=== PATIENT | female | born 1975 | race Caucasian/White ===

== ENCOUNTER 2018-11-17 03:04 | Observation (INO) ==
[2018-11-17] MEDS ORDERED: IOPAMIDOL 100 ML BOTTLE IV ONE (03:05)
[2018-11-17 04:00] LABS: Basophils # (Auto) 0 K/mcL (0.0-0.3); Basophils % (Auto) 0.3 % (0.0-2.0); Eosinophils # (Auto) 0.1 K/mcL (0.0-0.7); Eosinophils % (Auto) 0.7 % (0.0-7.0); Granulocytes % (Auto) 73.9 % (38.0-78.0); Lymphocytes # (Auto) 1.8 K/mcL (1.5-4.8); Lymphocytes % (Auto) 17.1 % (15.5-49.0); Mean Cell Volume 90.7 fL (80.0-100.0); Mean Corpuscular HGB Conc 33.5 g/dL (31.0-36.0); Monocytes # (Auto) 0.9 K/mcL (0.1-0.9); Platelet Count 235 K/mcL (140-440); RBC 4.81 M/mcL (4.00-5.20)
[2018-11-17] MEDS ORDERED: LACTATED RINGERS 1,000 ML IV SCH (04:00)
[2018-11-17 04:16] LABS: ALT/SGPT 19 U/l (0-40); Albumin/Globulin Ratio 1.2 (1.0-2.3); Alkaline Phosphatase 88 U/L (39-117); Blood Urea Nitrogen 9 mg/dl (6-20)
[2018-11-17 04:39] LABS: Appearance,Urine HAZY; Bilirubin,Urine NEG (NEG); Color,Urine YELLOW; Glucose,Urine (UA) NEGATIVE (NEG); Leukocyte Esterase,Urine NEG /uL (NEG); Protein,Urine NEG (NEG); Specific Gravity,Urine 1.035 (1.000-1.035); Urine Blood NEG mg/dL (<0.03)
[2018-11-17 04:48] LABS: Amphetamine Screen,Urine NONE DETECTED (NONDETECTED); Benzodiazepines Screen,Urine NONE DETECTED (NONDETECTED); Cocaine Screen,Urine NONE DETECTED (NONDETECTED); Opiate Screen,Urine NONE DETECTED (NONDETECTED); Oxycodone, Urine Screen NONE DETECTED (NONDETECTED)
[2018-11-17] MEDS ORDERED: ASPIRIN 81 MG TAB.CHEW CHEWED ONE (05:01)
[2018-11-17] MEDS ORDERED: INSULIN GLARGINE, HUMAN 1 UNIT/0.01 ML SQ ONE (05:15)
[2018-11-17] MEDS ORDERED: DEXTROSE 5% IN WATER 1,000 ML IV SCH (05:45)
--- NOTE | 2018-11-17 07:09 | Emergency Department Note ---
Weakness HPI - General Chief complaint: Weakness Stated complaint: weakness Time Seen by Provider: 11/17/18 03:15 Source: EMS Mode of arrival: EMS - History of Present Illness HPI Narrative: This patient normally gets up about 1:30 in the morning to go work out and using us to bed early at about 530. Last evening she was seen by her son 730 last time being normal. When her little alarm went off at 130 she rolled and fell out of bed and was too weak to get up she is unable to use her hands to text very well she could yell for her son who finally woke up and came and found her. The patient does not recall specifically if it was more right-sided or left- sided weakness but she could not use her right hand to text. She also could not get up. By the time she arrived in the emergency room her motor function had returned but she had slurred speech. - Related Data Home Medications Medication Instructions Recorded Confirmed Insulin Glargine,Hum.rec.anlog 40 units SQ DAILY 11/05/17 10/14/18 [Basaglar Kwikpen U-100] Insulin Lispro [HumaLOG] 35 unit SQ DAILY 11/05/17 10/14/18 Levothyroxine [Synthroid] 137 mcg PO DAILY 11/05/17 10/14/18 Allergies Allergy/AdvReac Type Severity Reaction Status Date / Time morphine Allergy Severe Anaphylaxis Verified 11/17/18 03:15 Penicillins Allergy Severe Difficulty Verified 11/17/18 03:15 Breathing Review of Systems All systems ED: reviewed and negative except as stated. Past Medical History - Past Medical History Medical history: Reports: DM (Type 1 since 2000), hypothyroidism Surgical history ED: Reports: other (lumbosacral disc him a ,) - Social History smoking status: Current every day smoker Alcohol use: Reports: Occasionally Drug use: Reports: none Physical Exam Limitations: no limitations General appearance: alert Head: atraumatic Eye: Present: normal appearance ENT: normal exam, normal oropharynx Neck: Present: normal inspection Chest: Present: normal inspection Cardiovascular: Present: regular rate, normal rhythm, normal heart sounds Abdominal: Present: soft. Absent: distention, tenderness Neurological: Present: alert Speech: Present: dysarthria. Absent: fluid speech Cranial nerves: facial palsy (VII): Normal Motor strength - LUE: 5/5 Motor strength - RUE: 5/5 Motor strength - LLE: 5/5 Motor strength - RLE: 5/5 Psychiatric: Present: normal affect Skin: Present: warm, dry Course Vital Signs Temperature 97.8 F 11/17/18 03:08 Pulse Rate 99 H 11/17/18 03:08 Respiratory Rate 15 11/17/18 03:08 Blood Pressure 124/83 11/17/18 03:08 Pulse Oximetry (%) 100 11/17/18 03:08 Temperature 97.8 F 11/17/18 03:08 Pulse Rate 94 H 11/17/18 06:33 Respiratory Rate 15 11/17/18 03:19 Blood Pressure 135/81 11/17/18 06:33 Pulse Oximetry (%) 98 11/17/18 06:33 Weakness - MDM Narrative Medical decision making narrative: CT of head and CTA of head and neck were negative. Within about 5 hours the patient resolved all of her symptoms and felt back to her normal baseline self. She was able to ambulate. I discussed the case with . thought he thinks we should admit her observation and do an MRI and an echo. - Lab Data Lab results reviewed: Yes I reviewed the patient's lab results. Result diagrams: 11/17/18 03:10 11/17/18 03:10 Lab Results 11/17/18 11/17/18 11/17/18 Range/Units 03:10 03:10 03:10 WBC 10.7 (4.5-11.0) K/mcL RBC 4.81 (4.00-5.20) M/mcL Hgb 14.6 (12.0-15.0) g/dL Hct 43.6 (36.0-48.0) % POC Hct 44.0 (36.0-48.0) % MCV 90.7 (80.0-100.0) fL MCH 30.4 (26.0-34.0) pg MCHC 33.5 (31.0-36.0) g/dL RDW 14.0 (11.5-14.5) % Plt Count 235 (140-440) K/mcL MPV 10.5 H (7.4-10.4) fL Gran % 73.9 (38.0-78.0) % Lymph % (Auto) 17.1 (15.5-49.0) % [place] % (Auto) 8.0 (1.0-12.0) % Eos % (Auto) 0.7 (0.0-7.0) % Baso % (Auto) 0.3 (0.0-2.0) % Gran # 7.9 (1.8-8.0) K/mcL Lymph # (Auto) 1.8 (1.5-4.8) K/mcL [place] # (Auto) 0.9 (0.1-0.9) K/mcL Eos # (Auto) 0.1 (0.0-0.7) K/mcL Baso # (Auto) 0 (0.0-0.3) K/mcL POC PT (11.9-14.5) sec POC INR (0.9-1.2) POC Sodium 141 (133-145) mmol/L Sodium (133-145) mmol/L POC Potassium 3.9 (3.3-5.1) mmol/L Potassium (3.3-5.1) mmol/L POC Chloride 102 (96-108) mmol/L Chloride (96-108) mmol/L Carbon Dioxide (22-30) mmol/L POC Total CO2 26 (22-30) mmol/L Anion Gap (8-16) POC BUN 9 (6-20) mg/dl BUN (6-20) mg/dl Creatinine (0.6-1.1) mg/dl POC Creatinine 0.7 (0.6-1.1) mg/dl GFR Calculation Glucose (70-105) mg/dL POC Glucose 97 (70-105) mg/dL Calcium (8.6-10.4) mg/dl POC WB Ioniz Calcium 1.14 L (1.16-1.32) mmol/L Total Bilirubin (0.0-1.0) mg/dL AST (0-37) U/l ALT (0-40) U/l Alkaline Phosphatase (39-117) U/L Total Protein (5.9-8.4) gm/dL Albumin (3.2-5.2) gm/dL Globulin (2.2-3.7) gm/dL Albumin/Globulin Ratio (1.0-2.3) Beta-Hydroxybutyrate (< 0.27) mmol/L Urine Color Urine Appearance Urine pH (5.0-9.0) Ur Specific [place] (1.000-1.035) Urine Protein (NEG) mg/dL Urine Glucose (UA) (NEG) mg/dL Urine Ketones (NEG) mg/dL Urine Occult Blood (<0.03) mg/dL Urine Nitrate (NEG) Urine Bilirubin (NEG) mg/dL Urine Urobilinogen (NEG) mg/dL Ur Leukocyte Esterase (NEG) /uL Urine Opiates Screen (NONDETECTED) Ur Oxycodone Screen (NONDETECTED) Urine Methadone Screen (NONDETECTED) Ur Barbiturates Screen (NONDETECTED) Ur Phencyclidine Scrn (NONDETECTED) Ur Amphetamines Screen (NONDETECTED) U Benzodiazepines Scrn (NONDETECTED) Urine Cocaine Screen (NONDETECTED) U Marijuana (THC) Screen (NONDETECTED) Ethyl Alcohol < 0.010 (<0.010) gm/dl 11/17/18 11/17/18 11/17/18 Range/Units 03:10 03:10 03:49 WBC (4.5-11.0) K/mcL RBC (4.00-5.20) M/mcL Hgb (12.0-15.0) g/dL Hct (36.0-48.0) % POC Hct (36.0-48.0) % MCV (80.0-100.0) fL MCH (26.0-34.0) pg MCHC (31.0-36.0) g/dL RDW (11.5-14.5) % Plt Count (140-440) K/mcL MPV (7.4-10.4) fL Gran % (38.0-78.0) % Lymph % (Auto) (15.5-49.0) % [place] % (Auto) (1.0-12.0) % Eos % (Auto) (0.0-7.0) % Baso % (Auto) (0.0-2.0) % Gran # (1.8-8.0) K/mcL Lymph # (Auto) (1.5-4.8) K/mcL [place] # (Auto) (0.1-0.9) K/mcL Eos # (Auto) (0.0-0.7) K/mcL Baso # (Auto) (0.0-0.3) K/mcL POC PT 12.0 (11.9-14.5) sec POC INR 1.0 (0.9-1.2) POC Sodium (133-145) mmol/L Sodium 139 (133-145) mmol/L POC Potassium (3.3-5.1) mmol/L Potassium 4.1 (3.3-5.1) mmol/L POC Chloride (96-108) mmol/L Chloride 100 (96-108) mmol/L Carbon Dioxide 25 (22-30) mmol/L POC Total CO2 (22-30) mmol/L Anion Gap 14.0 (8-16) POC BUN (6-20) mg/dl BUN 9 (6-20) mg/dl Creatinine 0.7 (0.6-1.1) mg/dl POC Creatinine (0.6-1.1) mg/dl GFR Calculation 108 Glucose 95 (70-105) mg/dL POC Glucose (70-105) mg/dL Calcium 9.2 (8.6-10.4) mg/dl POC WB Ioniz Calcium (1.16-1.32) mmol/L Total Bilirubin 0.4 (0.0-1.0) mg/dL AST 30 (0-37) U/l ALT 19 (0-40) U/l Alkaline Phosphatase 88 (39-117) U/L Total Protein 7.3 (5.9-8.4) gm/dL Albumin 4.0 (3.2-5.2) gm/dL Globulin 3.3 (2.2-3.7) gm/dL Albumin/Globulin Ratio 1.2 (1.0-2.3) Beta-Hydroxybutyrate 1.09 H (< 0.27) mmol/L Urine Color Urine Appearance Urine pH (5.0-9.0) Ur Specific [place] (1.000-1.035) Urine Protein (NEG) mg/dL Urine Glucose (UA) (NEG) mg/dL Urine Ketones (NEG) mg/dL Urine Occult Blood (<0.03) mg/dL Urine Nitrate (NEG) Urine Bilirubin (NEG) mg/dL Urine Urobilinogen (NEG) mg/dL Ur Leukocyte Esterase (NEG) /uL Urine Opiates Screen (NONDETECTED) Ur Oxycodone Screen (NONDETECTED) Urine Methadone Screen (NONDETECTED) Ur Barbiturates Screen (NONDETECTED) Ur Phencyclidine Scrn (NONDETECTED) Ur Amphetamines Screen (NONDETECTED) U Benzodiazepines Scrn (NONDETECTED) Urine Cocaine Screen (NONDETECTED) U Marijuana (THC) Screen (NONDETECTED) Ethyl Alcohol (<0.010) gm/dl 11/17/18 11/17/18 Range/Units 04:02 04:03 WBC (4.5-11.0) K/mcL RBC (4.00-5.20) M/mcL Hgb (12.0-15.0) g/dL Hct (36.0-48.0) % POC Hct (36.0-48.0) % MCV (80.0-100.0) fL MCH (26.0-34.0) pg MCHC (31.0-36.0) g/dL RDW (11.5-14.5) % Plt Count (140-440) K/mcL MPV (7.4-10.4) fL Gran % (38.0-78.0) % Lymph % (Auto) (15.5-49.0) % [place] % (Auto) (1.0-12.0) % Eos % (Auto) (0.0-7.0) % Baso % (Auto) (0.0-2.0) % Gran # (1.8-8.0) K/mcL Lymph # (Auto) (1.5-4.8) K/mcL [place] # (Auto) (0.1-0.9) K/mcL Eos # (Auto) (0.0-0.7) K/mcL Baso # (Auto) (0.0-0.3) K/mcL POC PT (11.9-14.5) sec POC INR (0.9-1.2) POC Sodium (133-145) mmol/L Sodium (133-145) mmol/L POC Potassium (3.3-5.1) mmol/L Potassium (3.3-5.1) mmol/L POC Chloride (96-108) mmol/L Chloride (96-108) mmol/L Carbon Dioxide (22-30) mmol/L POC Total CO2 (22-30) mmol/L Anion Gap (8-16) POC BUN (6-20) mg/dl BUN (6-20) mg/dl Creatinine (0.6-1.1) mg/dl POC Creatinine (0.6-1.1) mg/dl GFR Calculation Glucose (70-105) mg/dL POC Glucose (70-105) mg/dL Calcium (8.6-10.4) mg/dl POC WB Ioniz Calcium (1.16-1.32) mmol/L Total Bilirubin (0.0-1.0) mg/dL AST (0-37) U/l ALT (0-40) U/l Alkaline Phosphatase (39-117) U/L Total Protein (5.9-8.4) gm/dL Albumin (3.2-5.2) gm/dL Globulin (2.2-3.7) gm/dL Albumin/Globulin Ratio (1.0-2.3) Beta-Hydroxybutyrate (< 0.27) mmol/L Urine Color Yellow Urine Appearance Hazy Urine pH 5.0 (5.0-9.0) Ur Specific [place] 1.035 (1.000-1.035) Urine Protein Neg (NEG) mg/dL Urine Glucose (UA) Negative (NEG) mg/dL Urine Ketones 20 A (NEG) mg/dL Urine Occult Blood Neg (<0.03) mg/dL Urine Nitrate Neg (NEG) Urine Bilirubin Neg (NEG) mg/dL Urine Urobilinogen 4.0 A (NEG) mg/dL Ur Leukocyte Esterase Neg (NEG) /uL Urine Opiates Screen None detected (NONDETECTED) Ur Oxycodone Screen None detected (NONDETECTED) Urine Methadone Screen None detected (NONDETECTED) Ur Barbiturates Screen None detected (NONDETECTED) Ur Phencyclidine Scrn None detected (NONDETECTED) Ur Amphetamines Screen None detected (NONDETECTED) U Benzodiazepines Scrn None detected (NONDETECTED) Urine Cocaine Screen None detected (NONDETECTED) U Marijuana (THC) Screen None detected (NONDETECTED) Ethyl Alcohol (<0.010) gm/dl - Radiology Data Radiology results reviewed: Yes I reviewed the patient's radiology results. Disposition Pt seen by EMPLOYEE SERVICE OFFICER/PA only: No Clinical Impression: CVA (cerebral vascular accident) Disposition: Xfer As Outpt/Obs ([facility]) Condition: Good Referrals: Arlette Ferguson ARNP [Primary Care Provider] - Time of Disposition: 07:12
[2018-11-17] MEDS ORDERED: INSULIN LISPRO 1 UNIT/0.01 ML UNIT SQ ONE (07:20)
--- NOTE | 2018-11-17 08:12 | Internal Med History&Physical ---
Medical - H&P: HPI Patient information: Note initiated : 11/17/18 at 8:09 am Service Date, if different from initiated Date: [] Patient: Elie Guerra a 43 y/o F admitted on for Weakness. Chief Complaint: [] History of present illness: Ms. Guerra is a 43 year old F with history of type 1 diabetes, hypothyroidism, comes to the emergency room for evaluation of weakness. The patient notes that she usually wakes up around 130 to 2 AM goes to the gym and then studies. The patient this morning woke up and tried to shut the alarm off and just rolled over the bed. She notes she was unable to move had significant weakness in all 4 extremities and was not able to speak to yell for help. Her son lives in the same house. The patient is not sure how long she was down but thinks at least an hour and her son found her and then called EMS. Patient had cramping in bilateral lower extremities and she feels that they are sore but they were definitely weak she was not able to get up she was not able to use a phone to call for help. When EMS evaluated her fingerstick was 55. She was brought to the emergency room for further evaluation her symptoms were improving by the time she was here I believe her sugar was 96. I am not sure if EMS gave her some glucose. The patient still had slurring of speech in the emergency room here no facial deviation and the rest of the neuro exam had improved. On talking to the patient she notes that she had hypoglycemic episode the day before to however usually her symptoms associated with hypoglycemia is flushing and sweating she has not had weakness or lack of ability to speak of the symptoms in the past. The patient in the emergency room on presentation was hemodynamically stable afebrile labs unremarkable, beta hydroxybutyrate mildly elevated, the patient had a CT head which was reported as negative CT angios neck and head is negative [as per ED report official report is pending] EKG is sinus rhythm Given that the patient is an active smoker, she has diabetes and symptoms that are atypical at least for her for hypoglycemia and concerning for TIA she is being admitted to the hospital for further evaluation Review of systems: CONSTITUTIONAL: No weight loss, fever, chills, weakness or fatigue. HEENT: Eyes: No visual loss, blurred vision, double vision or yellow sclerae. Ears, Nose, Throat: No hearing loss, sneezing, congestion, runny nose or sore throat. SKIN: No rash or itching. CARDIOVASCULAR: No chest pain, chest pressure or chest discomfort. No palpitations or edema. RESPIRATORY: No shortness of breath, cough or sputum. GASTROINTESTINAL: No nausea, vomiting or diarrhea or constipation. No abdominal pain or blood in stools No Deya. GENITOURINARY: Denies Burning on urination. Blood in urine, or foul smelling urine NEUROLOGICAL: no headache, double vision. generalized weakness present. a-hasia present MUSCULOSKELETAL: lowe extremity cramps /musle soreness present , back pain, joint pain or stiffness. HEMATOLOGIC: No bleeding or bruising. No enlarged nodes PSYCHIATRIC: No depression or anxiety. ENDOCRINOLOGIC: No reports of sweating, cold or heat intolerance. No polyuria or polydipsia. ALLERGIES: No hives, eczema or rhinitis. Skin: No rash, no jaundice, cyanosis or pallor. Medical - H&P: PMH Medical history: DM Hypothyroids Pertinent family history: mother - copd father -suicide sister - hypothyroid Social history: lives with son presently undergoing a divorce smoker Medical - H&P: Meds Home Medications Medication Instructions Recorded Confirmed Type Insulin Glargine,Hum.rec.anlog 40 units SQ DAILY 11/05/17 10/14/18 History [Basaglar Kwikpen U-100] Insulin Lispro [HumaLOG] 35 unit SQ DAILY 11/05/17 10/14/18 History Levothyroxine [Synthroid] 137 mcg PO DAILY 11/05/17 10/14/18 History Allergies Allergy/AdvReac Type Severity Reaction Status Date / Time morphine Allergy Severe Anaphylaxis Verified 11/17/18 03:15 Penicillins Allergy Severe Difficulty Verified 11/17/18 03:15 Breathing Medical - H&P: Exam - Constitutional Vitals: Temp Pulse Resp BP Pulse Ox 97.8 F 94 H 15 111/68 98 11/17/18 03:08 11/17/18 06:33 11/17/18 03:19 11/17/18 07:31 11/17/18 06:33 Exam: GENERAL: The patient is a well-developed, well-nourished in no apparent distress. Is alert and oriented x3. VITAL SIGNS: Reviewed and as noted elsewhere. HEENT: Head is normocephalic and atraumatic. Extraocular muscles are intact. Pupils are equal, round, and reactive to light. Nares appeared normal. Mouth appears any without lesions. Mucous membranes are moist. NECK: Normal to inspection, Supple, No lymphadenopathy or thyromegaly. LUNGS: Air entry equal on both sides, no wheezing, crackles or rhonchi noted. No accessory muscles of respiration HEART: Regular rate and rhythm normal, S1 and S2 heard, no Gallop, S3 or Rub Noted, No Gross murmur heard. ABDOMEN: Soft, nontender, and nondistended. Positive bowel sounds. No hepatosplenomegaly was noted. EXTREMITIES: No cyanosis, clubbing, rash, lesions or edema. NEUROLOGIC: Cranial nerves II through XII are grossly intact. The patient has full strength in upper and lower extremities bilaterally. Her sensation is grossly normal and coordination is completely normal. PSYCHIATRIC: Normal affect, Normal Mood. Appropriate Behavior. SKIN: No ulceration or wounds noted, No jaundice, No rash noted. Medical - H&P: Reslt - Labs CBC & Chem 7: 11/17/18 03:10 11/17/18 03:10 Labs: Short CBC 11/17/18 Range/Units 03:10 WBC 10.7 (4.5-11.0) K/mcL Hgb 14.6 (12.0-15.0) g/dL Hct 43.6 (36.0-48.0) % Plt Count 235 (140-440) K/mcL BMP 11/17/18 03:10 Sodium 139 Potassium 4.1 Chloride 100 Carbon Dioxide 25 BUN 9 Creatinine 0.7 Glucose 95 Calcium 9.2 Liver Function 11/17/18 Range/Units 03:10 Total Bilirubin 0.4 (0.0-1.0) mg/dL AST 30 (0-37) U/l ALT 19 (0-40) U/l Alkaline Phosphatase 88 (39-117) U/L Albumin 4.0 (3.2-5.2) gm/dL Urine 11/17/18 Range/Units 04:03 Urine Color Yellow Urine Appearance Hazy Urine pH 5.0 (5.0-9.0) Ur Specific [place] 1.035 (1.000-1.035) Urine Protein Neg (NEG) mg/dL Urine Glucose (UA) Negative (NEG) mg/dL Medical - H&P: A/P - Narrative A/P Narrative: A/P Weakness TIA DM Tobacco abuse Hypoglycemia Plan Observe on telemetry for now. Patient has an ABCD score of 2 Although symptoms are most likely related to hypoglycemia the patient notes that this is not typical hypoglycemic symptoms for her. She has been given aspirin. We will get echocardiogram, stroke MRI hopefully will be able to just get a dwi image to evaluate any possible CVA. Monitor on telemetry for 24 hours. Check A1c check TSH check lipid panel also check a urine . Start the patient on statin and aspirin monitor glucose, d/c d5 w, ssin insulin, resume oral diet. edwards placed in ER to be discontinued If remains stable anticipate discharge in 24 hours
[2018-11-17] MEDS ORDERED: DEXTROSE 31 GM ORAL.SUSP PO PRN (08:18)
[2018-11-17] MEDS ORDERED: NALOXONE HCL 0.4 MG/ML VIAL IV PRN (08:18)
[2018-11-17] MEDS ORDERED: DEXTROSE 50% 50 ML VIAL IV PRN (08:18)
[2018-11-17] MEDS ORDERED: ACETAMINOPHEN 325 MG TABLET PO PRN (08:18)
--- NOTE | 2018-11-17 08:58 | Cat Scan Report ---
CLINICAL INFORMATION: Code stroke as acute dysarthria COMPARISON: None. TECHNIQUE: 2.5 mm helical slices were obtained in the skull base to vertex. Following reconstruction, axial reformatted images were reviewed at bone and parenchymal windows. The exam was performed using radiation dose optimization techniques including, but not limited to, automated exposure control, adjustment of the mA and/or kV according to patient size and use of iterative reconstruction technique. FINDINGS: The ventricles, sulci, fissures, and cisterns are normal in size and configuration. No extra-axial fluid collections are identified. The cerebrum, brainstem and cerebellum are unremarkable. There is no evidence of hemorrhage, mass effect, or edema. 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 IMPRESSION: No intracerebral abnormality Interpreted and Authenticated by: Parth Carlton 11/17/18
[2018-11-17] MEDS: INSULIN LISPRO 1 UNIT/0.01 ML UNIT SQ SCH ×5 (09:07→21:07)
[2018-11-17] MEDS: ASPIRIN 81 MG TAB.CHEW PO SCH (09:08)
[2018-11-17] MEDS: HEPARIN 5,000 UNIT/ML VIAL SQ SCH ×2 (09:08→19:47)
--- NOTE | 2018-11-17 09:23 | Cat Scan Report ---
CLINICAL INFORMATION: Slurred speech COMPARISON: None. TECHNIQUE: 80 cc of Isovue-300 were injected intravenously , and using SmartPrep to maximize cerebral arterial opacification, 0.625 mm helical slices were obtained from the skull base through the cerebral vertex. Following reconstruction , sagittal, coronal and axial reformatted images were processed and reviewed at multiple windows and levels. 3D volume rendered and MIP images were acquired at a independent workstation. The exam was performed using radiation dose optimization techniques including, but not limited to, automated exposure control, adjustment of the mA and/or kV according to patient size and use of iterative reconstruction technique. FINDINGS: The intracranial vertebral, internal carotid, both anterior, middle and posterior cerebral basilar and vertebral arteries are well opacified and normal in contour and caliber without occlusion stenosis or other pathology. The cervical deep cerebral veins deep venous sinuses are patent. IMPRESSION: Normal Interpreted and Authenticated by: Parth Carlton 11/17/18
--- NOTE | 2018-11-17 09:31 | Cat Scan Report ---
CLINICAL INFORMATION: Slurred speech code stroke COMPARISON: None. TECHNIQUE: 80 cc of Isovue-300 were injected intravenously, and using SmartPrep to maximize arterial opacification, 0.625 mm helical slices were obtained from the thoracic aortic arch through the minto of [place]. Following reconstruction, 1.25 mm sagittal, coronal and axial reformatted images were processed and reviewed at standard and bone algorithm/window. 3-D volume rendered, CPR and MIP images were processed using a [employer] work station.The exam was performed using radiation dose optimization techniques including, but not limited to, automated exposure control, adjustment of the mA and/or kV according to patient size and use of iterative reconstruction technique. FINDINGS: The thoracic aortic arch, brachiocephalic, both subclavian, vertebral, both common, internal and external carotid arteries are entirely unremarkable widely patent. Aortic branching is conventional. No soft tissue abnormalities. IMPRESSION: Normal Interpreted and Authenticated by: Parth Carlton 11/17/18
[2018-11-17] MEDS: 0.9 % SODIUM CHLORIDE 10 ML SYRINGE IV SCH ×2 (14:20→21:06)
[2018-11-17] MEDS: LACTATED RINGERS 1,000 ML IV SCH ×2 (14:20→21:30)
--- NOTE | 2018-11-17 15:53 | Magnetic Resonance Report ---
CLINICAL INFORMATION: Slurred speech and weakness. History of diabetes COMPARISON: None. TECHNIQUE:Sagittal T1 FLAIR, axial T1 FLAIR, T2 FLAIR propeller, T2 propeller, gradient, diffusion, ADC and coronal T2 weighted images were acquired. FINDINGS: The ventricles, sulci, fissures and cisterns are normal in size and configuration - no extra-axial fluid collections or masses are appreciated. There are scattered chronic ischemic foci in the subcortical and deep cerebral white matter, predominantly in the frontal regions. These are approximately 15 in number and range up to 5 mm. There are no regions of restricted diffusion to suggest acute infarct.. No intracerebral hemorrhage, mass effect, edema or other acute finding. A signal void in the intracerebral arteries, extra-axial cranial nerves, pituitary and orbits are all normal. IMPRESSION: Scattered chronic ischemic foci in the subcortical and deep white matter, predominantly the frontal lobes. With history of diabetes, this may due to small vessel arteriosclerosis. Interpreted and Authenticated by: Parth Carlton 11/17/18
[2018-11-17] MEDS ORDERED: INSULIN GLARGINE, HUMAN 1 UNIT/0.01 ML SQ SCH ×3 (19:00→21:00)
[2018-11-17] MEDS ORDERED: ATORVASTATIN 20 MG TABLET PO SCH (21:00)
[2018-11-18] MEDS: 0.9 % SODIUM CHLORIDE 10 ML SYRINGE IV SCH (06:54)
[2018-11-18 07:32] LABS: ALT/SGPT 21 U/l (0-40); Albumin 3.6 gm/dL (3.2-5.2); Albumin/Globulin Ratio 1.2 (1.0-2.3); Alkaline Phosphatase 78 U/L (39-117); Bilirubin,Direct < 0.2 mg/dL (0.0-0.3); Blood Urea Nitrogen 7 mg/dl (6-20); Gamma Glutamyl Transpeptidase 26 U/L (5-36); Uric Acid 3.9 mg/dL (2.5-8.0)
[2018-11-18] MEDS: HEPARIN 5,000 UNIT/ML VIAL SQ SCH (08:18)
[2018-11-18] MEDS: INSULIN LISPRO 1 UNIT/0.01 ML UNIT SQ SCH (08:19)
[2018-11-18] MEDS: ASPIRIN 81 MG TAB.CHEW PO SCH (08:19)
--- NOTE | 2018-11-18 09:47 | Discharge Summary ---
Medical - DS: Prov Patient information: Note initiated : 11/18/18 at 9:43 am Service Date, if different from initiated Date: [] Patient: Elie Guerra 43 y/o F admitted on 11/17/18 for Weakness. Chief Complaint: [] Date of admission: 11/17/18 08:10 Discharge date: 11/18/18 Primary care physician: Arlette Ferguson Discharging clinician: Francesca Griffin Medical - DS: Meds - Discharge Medications Prescriptions: Insulin Glargine,Hum.rec.anlog [Lantus Solostar] 20 unit SQ QHS 1 Days insuln.pen Aspirin 81 mg PO DAILY #100 tab Atorvastatin [Lipitor] 40 mg PO HS #90 tablet Ergocalciferol (Vitamin D2) [Vitamin D2] 2,000 unit PO DAILY #100 tablet Active and Home Medications: Home Medications Levothyroxine [Synthroid] 137 mcg PO DAILY 11/05/17 [History Confirmed 11/17/18 Last Taken 11/16/18] Insulin Glargine,Hum.rec.anlog [Lantus Solostar] 25 unit SQ BID 11/17/18 [History Confirmed 11/17/18 Last Taken Unknown] Insulin Lispro [HumaLOG] 1 unit SQ ACHS 11/17/18 [History Confirmed 11/17/18 Last Taken Unknown] Medical - DS: Hosp Hospital course: Ms. Guerra is a 43 year old F with history of type 1 diabetes, hypothyroidism, comes to the emergency room for evaluation of weakness. The patient notes that she usually wakes up around 130 to 2 AM goes to the gym and then studies. The patient this morning woke up and tried to shut the alarm off and just rolled over the bed. She notes she was unable to move had significant weakness in all 4 extremities and was not able to speak to yell for help. Her son lives in the same house. The patient is not sure how long she was down but thinks at least an hour and her son found her and then called EMS. Patient had cramping in bilateral lower extremities and she feels that they are sore but they were definitely weak she was not able to get up she was not able to use a phone to call for help. When EMS evaluated her fingerstick was 55. She was brought to the emergency room for further evaluation her symptoms were improving by the time she was here I believe her sugar was 96. I am not sure if EMS gave her some glucose. The patient still had slurring of speech in the emergency room here no facial deviation and the rest of the neuro exam had improved. On talking to the patient she notes that she had hypoglycemic episode the day before to however usually her symptoms associated with hypoglycemia is flushing and sweating she has not had weakness or lack of ability to speak of the symptoms in the past. The patient in the emergency room on presentation was hemodynamically stable afebrile labs unremarkable, beta hydroxybutyrate mildly elevated, the patient had a CT head which was reported as negative CT angios neck and head is negative [as per ED report official report is pending] EKG is sinus rhythm Given that the patient is an active smoker, she has diabetes and symptoms that are atypical at least for her for hypoglycemia and concerning for TIA she is being admitted to the hospital for further evaluation The patient was watched overnight, she had continued to receive insulin at her rquest, and her glucose level dropped down this AM, responded well to oral intake. The patient educated at length regarding cutting back her lantus to once daily qhs, and usling a lower dose. I am discharging the patient with 20units qhs of lantus and ssi insulin (home dose). 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 Pt has some muscle soreness and cramps, her ionized calcium was low, v it d level was low, she has been started on vit d replacement No more neurological episodes, telemetery neg for afib, stable for discharge. Discharge diagnosis: Hypoglycemia , TIA? - Time Spent with Patient Total time spent providing and/or coordinating discharge services: Greater than 30 minutes Medical - DS: Exam - Constitutional Vitals: Vital Signs Temp Pulse Pulse Resp BP BP BP 11/18/18 04:10 98.8 F 16 138/91 11/18/18 00:00 98.9 F 16 110/89 11/17/18 19:52 97.8 F 20 114/76 11/17/18 18:58 79 11/17/18 16:00 99.2 F H 88 16 107/89 11/17/18 12:00 99.8 F H 93 H 16 113/76 Pulse Ox 11/18/18 04:10 97 11/18/18 00:00 94 11/17/18 19:52 96 11/17/18 18:58 97 11/17/18 16:00 98 11/17/18 12:00 96 Intake and Output 11/17/18 11/18/18 11/18/18 21:59 05:59 13:59 Intake Total 1000 / 2226 800 / 2226 Output Total Balance 1000 / 1375 799 / 1375 Intake: IV 1000 / 1066 Lactated Ringers 1,000 ml @ 150 1000 / 1000 mls/hr IV .[id number] ESPERANZA Rx#: [id number] Oral 800 / 1160 Output: Void Amount Other: # Voids 1 Weight 186 lb Additional comments: Constitutional; Afebrile, cooperative, alert, not in distress. Eyes- No icterus, , No periorbital swelling Ears- Ext ear normal, hearing normal to conversation. Neck- Midline trachea, supple [employer]- AOOx3, moving all extremities, no gross focal deficit noted. Medical - DS: Data Labs on day of discharge: Labs from last 24 hours 11/18/18 11/17/18 06:44 05:00 Sodium 141 Potassium 3.8 Chloride 104 Carbon Dioxide 28 Anion Gap 9.0 BUN 7 Creatinine 0.8 GFR Calculation 92 Glucose 67 L Uric Acid 3.9 Calcium 8.9 Phosphorus 3.2 Magnesium 2.1 Total Bilirubin 0.3 Direct Bilirubin < 0.2 GGT 26 AST 54 H ALT 21 Alkaline Phosphatase 78 Lactate Dehydrogenase 211 Total Protein 6.7 Albumin 3.6 Globulin 3.1 Albumin/Globulin Ratio 1.2 Triglycerides 48 25-OH Vitamin D Total 13.76 L Medical - DS: A/P - Patient/Caregiver Discharge Instructions Diet: Consistent Carbohydrate Additional Instructions: You have been started on low dose aspirin, and atorvastatin for CVA/TIA prophylaxis Your vit D level is low, and I have started you on replacement for same You glucose level has been running low, please cut back on the lantus, take only 20 units at bed time, and titrate the dose of lantus to target a fasting glucose level of < 130. Talk to your PCP for further dose adjustment Follow up with PCP in 1-2 weeks Go to the ER if worsening condition, chest pain, shortness of breath or any other acute concerning symptoms - Follow up Plan Follow up with: Arlette Ferguson ARNP [Primary Care Provider] - 12/01/18 12:00 pm (Please check in 15 minutes before your appt.) Disposition: Home, Self-Care Prognosis: Good Rehab Potential: Fair I certify that the patient requires SNF services: No Overall status at discharge: patient is back to baseline Medical - DS: Qual - VTE Deep Vein Thrombosis/Pulmonary Embolism Present on Admission: Yes
== END 2018-11-18 10:55 | disposition home or self-care (01) ==
LOC: ICU 03:04 → ED 03:04 → ICU 08:15
PROVIDERS: ADMIT Internal Medicine; ATTEND Internal Medicine